=== PATIENT | male | born 1990 ===

== ENCOUNTER 2019-04-10 13:51 | Emergency (ER) | payer SELFPAY ==
[2019-04-10] MEDS ORDERED: Sodium Chloride 0.9% 1,000 ML IV STA ×2 (14:22→16:57)
--- NOTE | 2019-04-10 14:35 | C.PDOC ---
History Of Present Illness 28 year old male with no PMHx presents to the ED complaining of vomiting and diarrhea since yesterday. Reports abdominal pain prior to vomiting. Denies bleeding in stool or in vomit. Associated symptoms include fever and general weakness. Denies recent travels, sick contacts, recent antibiotics, camping, or hiking. Time Seen by Provider: 04/10/19 14:14 Chief Complaint (Nursing): Fever History Per: Patient History/Exam Limitations: no limitations Onset/Duration Of Symptoms: Days (1) Current Symptoms Are (Timing): Still Present Sick Contacts (Context): None Associated Symptoms: Vomiting, Diarrhea Past Medical History Reviewed: Historical Data, Nursing Documentation, Vital Signs Vital Signs: Last Vital Signs Temp 100.7 F H 04/10/19 14:02 Pulse 120 H 04/10/19 14:02 Resp 18 04/10/19 14:02 BP 128/81 04/10/19 14:02 Pulse Ox 97 04/10/19 14:02 Primary Care Provider: FAMILY PROVIDER,NO - Medical History PMH: No Chronic Diseases Surgical History: No Surg Hx Family History: States: No Known Family Hx - Social History Hx Alcohol Use: No Hx Substance Use: No - Immunization History Hx Tetanus Toxoid Vaccination: No Hx Influenza Vaccination: No Hx Pneumococcal Vaccination: No Review Of Systems Except As Marked, All Systems Reviewed And Found Negative. Gastrointestinal: Negative for: Hematochezia, Hematemesis Physical Exam - Physical Exam Additional Physical Exam Comments: Constitutional: No acute distress. Head: Normocephalic. Atraumatic. Eyes: PERRL. ENT: dry mucous membranes. Neck: Supple. Cardiovascular: Tachycardic, Radial pulse 2+ bilaterally. Chest: No tenderness. Respiratory: Clear to auscultation bilaterally. GI: Soft. Nontender. Nondistended. Back: No CVA tenderness. Musculoskeletal: No tenderness or swelling of extremities. Skin: No rash. Neurologic: Alert, no focal deficit. ED Course And Treatment - Laboratory Results Result Diagrams: 04/10/19 15:53 04/10/19 15:53 O2 Sat by Pulse Oximetry: 97 (RA) Pulse Ox Interpretation: Normal Medical Decision Making Medical Decision Making: Plan - Bloodwork - Zofran 8mg IVP - IV fluids - UA HR normalized, Patient able to tolerate fluids. Offered admission but patient declined. Discharge home, continue oral hydration, return to ED for worsening pain, fever, vomiting, dyspnea, or any other problem. Disposition - Disposition Referrals: at [facility] [Outside] Disposition: HOME/ ROUTINE Disposition Time: 17:23 Condition: FAIR Prescriptions: levoFLOXacin [Levaquin] 1 tab PO DAILY #10 tab Ondansetron ODT [Zofran ODT] 4 mg PO Q8 #12 odt Instructions: Viral Gastroenteritis Forms: [employer] (Faroese) - Clinical Impression Clinical Impression: Vomiting, Diarrhea - Scribe Statement The provider has reviewed the documentation as recorded by the Scribe Leeanna Cheng All medical record entries made by the Eliuibe were at my direction and personally dictated by me. I have reviewed the chart and agree that the record accurately reflects my personal performance of the history, physical exam, medical decision making, and the department course for this patient. I have also personally directed, reviewed, and agree with the discharge instructions and disposition.
[2019-04-10] MEDS ORDERED: Sodium Chloride 0.9% 1,000 ML ONE (14:43)
[2019-04-10 15:20] LABS: URINE BILIRUBIN NEGATIVE (NEGATIVE); URINE BLOOD 1+ (NEGATIVE); URINE CLARITY Clear (Clear); URINE COLOR Yellow (YELLOW); URINE GLUCOSE (UA) NORMAL (Normal); URINE LEUKOCYTE ESTERASE NEG Leu/uL (Negative); URINE PROTEIN NEGATIVE (NEGATIVE); URINE UROBILINOGEN NORMAL mg/dL (0.2-1.0)
[2019-04-10 16:02] LABS: BASO % 0.2 % (0.0-2.0); HEMOGLOBIN 15.1 g/dL (12.0-18.0); LYMPH # 1.1 K/uL (1.0-4.3); LYMPH % 5.2 % (20.0-40.0); MEAN CELL VOLUME 86.4 fL (80.0-94.0); MEAN CORPUSCULAR HEMOGLOBIN 29.7 pg (27.0-31.0); MEAN CORPUSCULAR HGB CONC 34.3 g/dL (33.0-37.0); MEAN PLATELET VOLUME 8.9 fL (7.2-11.7); MONO # 1.6 K/uL (0.0-0.8); MONO % 7.4 % (0.0-10.0); NEUT # 18.9 K/uL (1.8-7.0); NEUT % 87.2 % (50.0-75.0); PLATELET COUNT 254 K/uL (130-400); RED CELL DISTRIBUTION WIDTH 13.2 % (11.5-14.5); WHITE BLOOD COUNT 21.6 K/uL (4.8-10.8)
[2019-04-10 16:17] LABS: ALB/GLOB RATIO 1.4 (1.0-2.1); ALBUMIN 4.2 g/dL (3.5-5.0); ALT/SGPT 45 U/L (21-72); AST/SGOT 30 U/L (17-59); BLOOD UREA NITROGEN 13 mg/dL (9-20); CALCIUM 9.2 mg/dl (8.6-10.4); GFR NON-AFRICAN AMERICAN > 60; LIPASE 46 U/L (23-300)
[2019-04-10 16:28] LABS: BANDS 5 % (0-2); LYMPHOCYTE 6 % (20-40); MONOCYTE 7 % (0-10); NEUTROPHIL 82 % (50-75); PLATELET ESTIMATE NORMAL (NORMAL); TOTAL CELLS COUNTED 100
[2019-04-10 16:29] LABS: ANISOCYTOSIS SLIGHT; HYPOCHROMIC SLIGHT; LARGE PLATELETS PRESENT
[2019-04-10 16:49] LABS: VENOUS BLOOD GAS BASE EXCESS -2.5 mmol/L (0.0-2.0); VENOUS BLOOD GAS PCO2 39 mmHg (40-60); VENOUS BLOOD GAS PO2 37 mm/Hg (30-55); VENOUS BLOOD PH 7.37 (7.32-7.43)
[2019-04-10 17:20] VITALS: RESP 16
[2019-04-10 17:53] VITALS: BP 108/69; PULSE 90; TEMP 101; O2SAT 100
== END 2019-04-10 17:41 | disposition home or self-care (01) ==
LOC: C.ER 13:51
DX: R11.10 Vomiting, unspecified (principal); R19.7 Diarrhea, unspecified
CPT/HCPCS: 80053; 81001; 82803; 83690; 85025; 96374; 96375; 99284; J1885; J2405; J7030